=== PATIENT | female | born 1985 | race Caucasian/White ===

== ENCOUNTER 2016-11-22 04:35 | Observation (INO) | payer OTHER ==
--- NOTE | 2016-11-22 05:53 | OBPROG ---
Labor Progress Note Assessment/Plan: Assessment:cat fhr denies painful contractions irregular contractions 4-8 minutes apart exam 4-80/-1 cephalic Plan:ambulate for several hours and reevaluate for labor. Discussed IOL at this time patient desires to wait to see if labor begins after stripping the membranes 11/22/16 05:51 Subjective/Intrapartum Course: 11/22/16 05:50 Doing well. Nervous worried about baby felt decreased movement. Bby now moving cat1 fhr on monitor - SVE Dilation (cm): 4 Effacement (%): 75 Station: -1 Membranes: Intact - Physical Exam General Appearance: WD/WN, alert, no apparent distress Respiratory: chest non-tender, lungs clear, normal breath sounds Cardiac/Chest: regular rate, rhythm Abdomen: normal bowel sounds Extremities: Fransisca's sign (negative) DTR- Lower Extremities: Knee (R): 1+, Knee (L): 1+ (no clonus) Skin: normal color, warm/dry Neuro/Psych: no motor/sensory deficits, alert, normal mood/affect, oriented x 3 Oxytocin Orders Assessment - Pre-Induction/Augmentation Assessment Gestational Age: 40 week(s) and 4 day(s) ICD10 Worksheet Patient Problems: Problems Problem Status Onset Decreased movement Acute labor check Acute - ICD10 Problem Qualifiers (2) Decreased movement Qualifiers: Fetus number: single or unspecified fetus Trimester: third trimester Qualified Code(s): O36.8130 - Decreased movements, third trimester, not applicable or unspecified
--- NOTE | 2016-11-22 06:35 | GHP ---
[f rep st] HISTORY AND PHYSICAL DATE OF ADMISSION: 11/22/2016 Patient is a 31-year-old, 3, para 2, with an EDC of 11/18/2016, which gives her a gestational age of 40 and 4/7 weeks who comes in with irregular labor contractions and decreased movement on 11/22/2016. Patient has been seen at [facility] routinely since 9 weeks' gestation. MEDICAL HISTORY: Positive anemia. Patient is Rh negative. SURGICAL HISTORY: Previous concussion in high school. Stress fracture of the femur. GYNECOLOGICAL HISTORY: Previous OCP use. Previous abnormal Pap smears. Colposcopies in 2007 and 2009. Patient also had ParaGard and Mirena use. A uterine fibroid, 2 x 5 x 1 x 9 x 2 x 5. SOCIAL HISTORY: Denies tobacco use. Denies drug use. Is to [place]. PRESENT HISTORY: Abnormal 1-hour GTT with a normal 3 hour. REVIEW OF SYSTEMS: All noncontributory. FAMILY HISTORY: Noncontributory. MEDICATIONS: vitamins with DHA. ALLERGIES: NKDA. LABORATORY DATA: Patient is A positive, antibody negative. RPR is nonreactive. Rubella is nonimmune. Hepatitis is negative. HIV is negative. Three hour screen was within normal limits. GBS is negative. PHYSICAL EXAMINATION: Patient is awake, alert, oriented x3. Lungs are clear bilaterally. Bowel sounds are positive in all 4 quadrants. DTRs are 1+ bilaterally. Homans sign is negative. Patient is bibi irregularly, somewhere in between 4 and 8 minutes apart. Patient was 4-5 cm, 80% effaced, - 1 station. Cephalic presentation. Patient requested stripping of membranes. At this time, is on the fence about induction of labor due to anxiety over decreased movement. PLAN OF CARE: 1. Stripping membranes. 2. GBS negative. 3. At patient's discretion will reexamine cervix and possible induction of labor at term electively. /[id number]/MODL MTDD
--- NOTE | 2016-11-22 08:03 | OBPROG ---
Labor Progress Note Assessment/Plan: Assessment:cat fhr denies painful contractions irregular contractions 4-8 minutes apart exam 4-5/80/-1 cephalic Plan:no change to the cervix discharge to home with reassurance return for iol on sunday verbalized understanding labor precautions given 11/22/16 05:51 11/22/16 08:01 Subjective/Intrapartum Course: 11/22/16 05:50 Doing well. feeling reassured fu sunday nst reactive and reassuring 11/22/16 08:03 - SVE Dilation (cm): 4, 5 Effacement (%): 75 Station: -1 Membranes: Intact - Contraction Pattern Assessment Current Contraction Pattern: Irregular Oxytocin Orders Assessment - Pre-Induction/Augmentation Assessment Gestational Age: 40 week(s) and 4 day(s) ICD10 Worksheet Patient Problems: Problems Problem Status Onset Decreased movement Acute labor check Acute - ICD10 Problem Qualifiers (2) Decreased movement Qualifiers: Fetus number: single or unspecified fetus Trimester: third trimester Qualified Code(s): O36.8130 - Decreased movements, third trimester, not applicable or unspecified
== END 2016-11-22 08:30 | disposition home or self-care (01) ==
LOC: FLD 04:35
PROVIDERS: ADMIT Advanced Practice Midwife; ATTEND Obstetrics & Gynecology
PROC: 10D07Z8 Extraction of Products of Conception, Other, Via Natural or Artificial Opening (ICD-10-PCS; principal; 2016-11-22)
DX: O36.8130 Decreased fetal movements, third trimester, not applicable or unspecified (principal); Z3A.40 40 weeks gestation of pregnancy; O48.0 Post-term pregnancy
CPT/HCPCS: 59025; G0378

== ENCOUNTER 2016-11-23 09:00 | Inpatient (IN) | payer OTHER ==
[2016-11-23] MEDS ORDERED: EPSOM SALT 454 GM TP PRN (09:53)
[2016-11-23] MEDS ORDERED: OXYTOCIN/RINGERS LACTATE 1,000 ML IV PRN (09:53)
[2016-11-23] MEDS ORDERED: LR 1,000 ML IV PRN (09:53)
[2016-11-23] MEDS ORDERED: OLIVE OIL 118 ML BTL MISC PRN (09:53)
[2016-11-23] MEDS ORDERED: TERBUTALINE SULFATE 1 MG/ML VIAL IV PRN (09:53)
[2016-11-23 11:16] LABS: % IMMATURE GRANULYOCYTES 0.5 % (0.0-1.1); ABSOLUTE IMMATURE GRANULOCYTES 0.06 10^3/uL (0.00-0.10); ADD DIFF? NO; ADD MORPH? NO; ADD SCAN? NO; ATYPICAL LYMPHOCYTE FLAG 0 (0-99); FRAGMENT RBC FLAG 10 (0-99); HEMATOCRIT 38.6 % (38.0-47.0); HEMOGLOBIN 13.2 g/dL (12.6-16.3); LEFT SHIFT FLG 0 (0-99); LIPEMIA HEMOLYSIS FLAG 90 (0-99); MEAN CELL HEMOGLOBIN 30.8 pg (27.9-34.1); MEAN CELL HEMOGLOBIN CONCENTR. 34.2 g/dL (32.4-36.7); MEAN CELL VOLUME 90.2 fL (81.5-99.8); MEAN PLATELET VOLUME 11.4 fL (8.7-11.7); PLATELET CLUMPS FLAG 10 (0-99); PLATELET COUNT 211 10^3/uL (150-400); RED BLOOD CELL COUNT 4.28 10^6/uL (4.18-5.33); RED CELL DISTRIBUTION WIDTH 12.4 % (11.5-15.2)
[2016-11-23 11:25] LABS: ALANINE AMINOTRANSFERASE 30 IU/L (9-52); ASPARTATE AMINOTRANSFERASE 20 IU/L (14-46); BILIRUBIN,TOTAL 0.5 mg/dL (0.1-1.4); BILIRUBIN-CONJUGATED 0.2 mg/dL (0.0-0.5); BILIRUBIN-UNCONJUGATED 0.3 mg/dL (0.0-1.1); CREATININE 0.6 mg/dL (0.6-1.0); GLOMERULAR FILTRATION RATE > 60; LACTATE DEHYDROGENASE 377 IU/L (313-618); URIC ACID 6.3 mg/dL (2.5-6.8)
--- NOTE | 2016-11-23 13:08 | PDGENHP ---
History and Physical - Chief Complaint Pt presents to L&D with decreased FM x 2 days - History of Present Illness This is a [id number] with IUP@ 40-5wks that presents to L&D with complaints of decreased FM x 2 days. She reports irregular contractions, denies any LOF, VB. She denies any headaches, visual changes, epigastric pain. History Information - Allergies/Home Medication List Allergies/Adverse Reactions: No Known Allergies Allergy (Verified 08/23/12 14:27) Home Medications: L.acidoph/L.rhamn/B.bif/B.long [Probiotic Acidophilus Biobeads] 3 tab PO DAILY 08/23/12 [Last Taken Unknown] Vit27&Calcium/Iron/FA [] 1 tab PO DAILY 08/23/12 [Last Taken Unknown] I have personally reviewed and updated: family history, medical history, social history, surgical history - Past Medical History no pertinent PMH - Surgical History Reports: no pertinent surgical hx - Social History Smoking Status: Never smoked Alcohol Use: None Drug Use: None Review of Systems Review of Systems: ROS: 10pt was reviewed & negative except for what was stated in HPI & below Constitutional: Reports: no symptoms EENMT: Reports: no symptoms Cardiac: Reports: no symptoms Respiratory: Reports: no symptoms Gastrointestinal: Reports: no symptoms Genitourinary: Reports: no symptoms Muscolosketal: Reports: no symptoms Skin: Reports: no symptoms Neurological: Reports: no symptoms Physical Exam Physical Exam: Constitutional: no apparent distress, appears nourished Eyes: EOMI Ears, Nose, Mouth, Throat: moist mucous membranes, hearing normal, ears appear normal Cardiovascular: regular rate and rhythym, no murmur, rub, or gallop Respiratory: no respiratory distress, no rales or rhonchi Gastrointestinal: soft, non-tender abdomen (gravid) Genitourinary: no bladder fullness Skin: warm, normal color Musculoskeletal: full muscle strength Neurologic: AAOx3 Psychiatric: interacting appropriately, anxious Lab Data & Imaging Review 11/23/16 10:45 11/23/16 10:45 WBC 11.64 10^3/uL (3.80-9.50) H 11/23/16 10:45 RBC 4.28 10^6/uL (4.18-5.33) 11/23/16 10:45 Hgb 13.2 g/dL (12.6-16.3) 11/23/16 10:45 Hct 38.6 % (38.0-47.0) 11/23/16 10:45 MCV 90.2 fL (81.5-99.8) 11/23/16 10:45 MCH 30.8 pg (27.9-34.1) 11/23/16 10:45 MCHC 34.2 g/dL (32.4-36.7) 11/23/16 10:45 RDW 12.4 % (11.5-15.2) 11/23/16 10:45 Plt Count 211 10^3/uL (150-400) 11/23/16 10:45 MPV 11.4 fL (8.7-11.7) 11/23/16 10:45 Neut % (Auto) 80.3 % (39.3-74.2) H 11/23/16 10:45 Lymph % (Auto) 13.9 % (15.0-45.0) L 11/23/16 10:45 Jenkins % (Auto) 4.4 % (4.5-13.0) L 11/23/16 10:45 Eos % (Auto) 0.6 % (0.6-7.6) 11/23/16 10:45 Baso % (Auto) 0.3 % (0.3-1.7) 11/23/16 10:45 Nucleat RBC Rel Count 0.0 % (0.0-0.2) 11/23/16 10:45 Absolute Neuts (auto) 9.34 10^3/uL (1.70-6.50) H 11/23/16 10:45 Absolute Lymphs (auto) 1.62 10^3/uL (1.00-3.00) 11/23/16 10:45 Absolute Monos (auto) 0.51 10^3/uL (0.30-0.80) 11/23/16 10:45 Absolute Eos (auto) 0.07 10^3/uL (0.03-0.40) 11/23/16 10:45 Absolute Basos (auto) 0.04 10^3/uL (0.02-0.10) 11/23/16 10:45 Absolute Nucleated RBC 0.00 10^3/uL (0-0.01) 11/23/16 10:45 Immature Gran % 0.5 % (0.0-1.1) 11/23/16 10:45 Immature Gran # 0.06 10^3/uL (0.00-0.10) 11/23/16 10:45 BUN 10 mg/dL (7-23) 11/23/16 10:45 Creatinine 0.6 mg/dL (0.6-1.0) 11/23/16 10:45 Estimated GFR > 60 11/23/16 10:45 Uric Acid 6.3 mg/dL (2.5-6.8) 11/23/16 10:45 Total Bilirubin 0.5 mg/dL (0.1-1.4) 11/23/16 10:45 Conjugated Bilirubin 0.2 mg/dL (0.0-0.5) 11/23/16 10:45 Unconjugated Bilirubin 0.3 mg/dL (0.0-1.1) 11/23/16 10:45 AST 20 IU/L (14-46) 11/23/16 10:45 ALT 30 IU/L (9-52) 11/23/16 10:45 Lactate Dehydrogenase 377 IU/L (313-618) 11/23/16 10:45 Patient ABO/Rh A POSITIVE 11/23/16 10:45 Antibody Screen NEGATIVE 11/23/16 10:45 Assessment & Plan Assessment: [id number] with IUP@ 40-5wks Decreased FM GBS Negative Cat 1 FHR tracing Plan: Admit to L&D initiate IOL- AROM, will use pitocin PRN reassess 2hr/PRN anticipate
[2016-11-23] MEDS ORDERED: LIDOCAINE 1% 300 MG/30 ML SDV ONE (13:13)
[2016-11-23] MEDS ORDERED: OLIVE OIL 118 ML BTL ONE (13:14)
[2016-11-23] MEDS ORDERED: OXYTOCIN 10 UNIT/ML VIAL ONE (13:14)
[2016-11-23] MEDS ORDERED: AMMONIA AROMATIC 1 EACH AMP IH ONE (13:14)
[2016-11-23] MEDS ORDERED: TERBUTALINE SULFATE 1 MG/ML VIAL ONE (13:14)
[2016-11-23] MEDS ORDERED: MISOPROSTOL 200 MCG TAB ONE (13:15)
--- NOTE | 2016-11-23 13:21 | OBPROG ---
Labor Progress Note Assessment/Plan: Assessment: [id number] with IUP@ 40-5wks GBS Negative cat 1 FHR Tracing AROM- clear Plan: reassess 2hr/ PRN ambulate/hydrotherapy anticipate 11/23/16 13:18 Objective: 11/23/16 10:45 11/23/16 10:45 Patient ABO/Rh A POSITIVE 11/23/16 10:45 Uric Acid 6.3 mg/dL (2.5-6.8) 11/23/16 10:45 Total Bilirubin 0.5 mg/dL (0.1-1.4) 11/23/16 10:45 Conjugated Bilirubin 0.2 mg/dL (0.0-0.5) 11/23/16 10:45 Unconjugated Bilirubin 0.3 mg/dL (0.0-1.1) 11/23/16 10:45 AST 20 IU/L (14-46) 11/23/16 10:45 ALT 30 IU/L (9-52) 11/23/16 10:45 Lactate Dehydrogenase 377 IU/L (313-618) 11/23/16 10:45 - SVE Dilation (cm): 4 Effacement (%): 50 Station: -2 Membranes: AROM Amniotic Fluid Color: Clear - Contraction Pattern Assessment Current Contraction Pattern: Irregular - Procedures Non-surgical Procedures: Amniotomy - AP Antepartum Course: 11/23/16 13:20 entered care @9wks routine/normal care, GBS Neg - Physical Exam General Appearance: WD/WN, alert, no apparent distress Estimated Weight: [id number] Abdomen: non-tender, soft Extremities: non-tender Skin: normal color, warm/dry Neuro/Psych: normal mood/affect, oriented x 3 Oxytocin Orders Assessment - Pre-Induction/Augmentation Assessment Gestational Age: 40 week(s) and 5 day(s) ICD10 Worksheet Patient Problems: Problems Problem Status Onset Decreased movement affecting management of mother, antepartum Acute Encounter for supervision of normal first in third trimester Acute - ICD10 Problem Qualifiers (1) Decreased movement affecting management of mother, antepartum (2) Encounter for supervision of normal first in third trimester
[2016-11-23] MEDS ORDERED: OXYTOCIN 20 UNIT in LR 1,000 ML IV SCH (14:00)
[2016-11-23] MEDS: IBUPROFEN 600 MG TAB PO PRN (16:36)
--- NOTE | 2016-11-23 17:46 | OBDEL ---
Info Type: Vaginal Presentation at Delivery: Vertex L&D Analgesia/Anesthesia Type: None GBS+: No Intrapartum Medications: Generic Name Dose Route Start Last Admin Trade Name Freq PRN Reason Stop Dose Admin Ibuprofen 600 mg 11/23/16 09:53 11/23/16 16:36 Motrin PO 05/22/17 09:52 600 mg Q6HRS PRN Administration post , inflammation - Hospital Course Intrapartum: 11/23/16 17:48 IOL 2/2 decreased FM @ 40-5wks GBS Neg , unmedicated, baby boy, 3296 grams, intact perineum Indications for Delivery: Postterm Favorable Cervix (with decreased FM ) Vaginal Delivery - Delivery Provider Delivery Physician/CNM: Milady Burdick Proctoring Provider: Malika Awan - Labor and Delivery Onset of Contractions Date: 11/23/16 Onset of Contractions Time: 12:15 Onset of Contractions Type: Induced Rupture of Membranes Date: 11/23/16 Rupture of Membranes Time: 12:13 Rupture of Membranes Type: Artificial Amniotic Fluid Color: Clear Dilation Complete Date: 11/23/16 Dilation Complete Time: 16:00 Placenta Delivery Date: 11/23/16 Placenta Delivery Time: 16:19 Total Hours of Labor: 4 Non-surgical Procedures: Amniotomy Vaginal Sponge Count Correct: Yes Vaginal Needle Count Correct: Yes Vaginal Sweep Performed: No EBL: 100 Delivery Events: None - Medications Labor Augmentation/Induction Methods Used: Other (Specify) (AROM) Labor Augmentation/Induction Indication: Post Dates, Other (Specify) (decreased FM) [place] [facility] [place] Delivery Date: 11/23/16 Delivery Time: 16:06 RADHA: 11/18/16 Gestational Age: 40 week(s) and 5 day(s) Sex of Infant: Male [place] Weight (gm): 3296 g Score (1 Min): 8 Score (5 Min): 9 ICD10 Worksheet Patient Problems: Problems Problem Status Onset Decreased movement affecting management of mother, antepartum Acute Encounter for supervision of normal first in third trimester Acute (spontaneous vaginal delivery) Acute (spontaneous vaginal delivery) Acute - ICD10 Problem Qualifiers (1) Decreased movement affecting management of mother, antepartum Qualifiers: Fetus number: single or unspecified fetus Qualified Code(s): O36.8190 - Decreased movements, unspecified trimester, not applicable or unspecified (2) Encounter for supervision of normal first in third trimester (3) (spontaneous vaginal delivery) (4) (spontaneous vaginal delivery)
[2016-11-23] MEDS ORDERED: HYDROCORTISONE 0.5% CREAM TP PRN (17:50)
[2016-11-23] MEDS ORDERED: SIMETHICONE 80 MG TAB CHEW PO PRN (17:50)
[2016-11-23] MEDS ORDERED: HYDROCODONE/APAP 5/325 TAB PO PRN (17:50)
[2016-11-24] MEDS: IBUPROFEN 600 MG TAB PO PRN ×3 (02:24→18:13)
--- NOTE | 2016-11-24 09:13 | OBPP ---
Progress Note Assessment/Plan: Assessment: s/p PPD # 1 - pt is stable Plan: Continue routine pp care Plan for d/c home in am 11/2511/24/16 09:13 Subjective/ Course: Pt seen and examined. Doing well with no complaints. Minimal cramping. Mod lochia. [place] reg diet, voiding and passing flatus. No BM. BF without difficulty. Objective: 11/23/16 10:45 11/23/16 10:45 Patient ABO/Rh A POSITIVE 11/23/16 10:45 Uric Acid 6.3 mg/dL (2.5-6.8) 11/23/16 10:45 Total Bilirubin 0.5 mg/dL (0.1-1.4) 11/23/16 10:45 Conjugated Bilirubin 0.2 mg/dL (0.0-0.5) 11/23/16 10:45 Unconjugated Bilirubin 0.3 mg/dL (0.0-1.1) 11/23/16 10:45 AST 20 IU/L (14-46) 11/23/16 10:45 ALT 30 IU/L (9-52) 11/23/16 10:45 Lactate Dehydrogenase 377 IU/L (313-618) 11/23/16 10:45 Temp Pulse Resp BP Pulse Ox 36.8 C 88 16 120/75 11/23/16 22:06 11/23/16 22:06 11/23/16 22:06 11/23/16 21:08 Uterine Position/Fundal Height: Umbilicus -2 Uterine Tone: Firm Physical Exam - Physical Exam Respiratory: lungs clear, normal breath sounds Cardiac/Chest: regular rate, rhythm Abdomen: normal bowel sounds, non-tender, soft, flatus (+) Extremities: non-tender, normal inspection Skin: normal color, warm/dry Neuro/Psych: alert, normal mood/affect, oriented x 3
[2016-11-24] MEDS: DOCUSATE SODIUM 100 MG CAP PO PRN (11:52)
[2016-11-25] MEDS: IBUPROFEN 600 MG TAB PO PRN ×2 (06:03→13:11)
[2016-11-25 09:27] VITALS: BP 118/81; PULSE 73; RESP 18; TEMP 98; O2SAT 94
[2016-11-25] MEDS: DOCUSATE SODIUM 100 MG CAP PO PRN (10:07)
--- NOTE | 2016-11-25 11:59 | OBPP ---
Progress Note Assessment/Plan: Assessment: ppd# 2 s/p breast feeding Plan: routine post and discharge instructions 11/25/16 11:56 Subjective/ Course: Pt seen and examined. Doing well with no complaints. Minimal cramping. Mod lochia. [place] reg diet, voiding and passing flatus. No BM. BF without difficulty. 11/25/16 11:58 patient. is doing well. pain is well controlled. normal lochia. denies headache and changes in vision. ready to go home. breast feeding is going well. Objective: 11/23/16 10:45 11/23/16 10:45 Patient ABO/Rh A POSITIVE 11/23/16 10:45 Uric Acid 6.3 mg/dL (2.5-6.8) 11/23/16 10:45 Total Bilirubin 0.5 mg/dL (0.1-1.4) 11/23/16 10:45 Conjugated Bilirubin 0.2 mg/dL (0.0-0.5) 11/23/16 10:45 Unconjugated Bilirubin 0.3 mg/dL (0.0-1.1) 11/23/16 10:45 AST 20 IU/L (14-46) 11/23/16 10:45 ALT 30 IU/L (9-52) 11/23/16 10:45 Lactate Dehydrogenase 377 IU/L (313-618) 11/23/16 10:45 Temp Pulse Resp BP Pulse Ox 36.6 C 73 18 118/81 H 94 11/25/16 08:00 11/25/16 08:00 11/25/16 08:00 11/25/16 08:00 11/25/16 08:00 Uterine Position/Fundal Height: Umbilicus -2 Physical Exam - Physical Exam Neck: non-tender, full range of motion, supple Respiratory: chest non-tender, lungs clear, normal breath sounds Cardiac/Chest: normal peripheral pulses, regular rate, rhythm, edema Abdomen: normal bowel sounds, non-tender Extremities: normal range of motion, non-tender, normal inspection, normal capillary refill Skin: normal color, warm/dry Neuro/Psych: no motor/sensory deficits, alert, normal mood/affect, oriented x 3
--- NOTE | 2016-11-25 12:05 | OBGCSDC ---
General Delivery Information - General Info : 3 Para: 3 Abortions: 0 Type: Vaginal L&D Analgesia/Anesthesia Type: None Admission Date: 11/23/16 Labs: Patient ABO/Rh A POSITIVE 11/23/16 10:45 Hct 38.6 % (38.0-47.0) 11/23/16 10:45 - Hospital Course Antepartum: 11/23/16 13:20 entered care @9wks routine/normal care, GBS Neg Intrapartum: 11/23/16 17:48 IOL 2/2 decreased FM @ 40-5wks GBS Neg , unmedicated, baby boy, 3296 grams, intact perineum : Pt seen and examined. Doing well with no complaints. Minimal cramping. Mod lochia. [place] reg diet, voiding and passing flatus. No BM. BF without difficulty. 11/25/16 11:58 patient. is doing well. pain is well controlled. normal lochia. denies headache and changes in vision. ready to go home. breast feeding is going well. Vaginal - Delivery Provider Delivery Physician/CNM: Milady Burdick - Diagnosis Labor: Induced Rupture of Membranes Type: Artificial Amniotic Fluid Color: Clear Delivery Events: None - Procedures Non-surgical Procedures: Amniotomy - Delivery Non-surgical Procedures: Amniotomy EBL: 100 [place] [facility] [place] Delivery Date: 11/23/16 Delivery Time: 16:06 RADHA: 11/18/16 Gestational Age: 41 week(s) and 0 day(s) Sex of : Male Weight (gm): 3296 g Score (1 Min): 8 Score (5 Min): 9 Discharge Information - Discharge Information Condition: Good Instruction/Follow Up: Four Weeks, Six Weeks
== END 2016-11-25 14:15 | disposition home or self-care (01) | DRG 775 ==
LOC: FLD 09:00 → FOB 20:09
PROVIDERS: ADMIT Obstetrics & Gynecology; ATTEND Obstetrics & Gynecology
PROC: 10907ZC Drainage of Amniotic Fluid, Therapeutic from Products of Conception, Via Natural or Artificial Opening (ICD-10-PCS; principal; 2016-11-23)
PROC: 10E0XZZ Delivery of Products of Conception, External Approach (ICD-10-PCS; principal; 2016-11-23)
DX: O36.8130 Decreased fetal movements, third trimester, not applicable or unspecified (principal); O48.0 Post-term pregnancy; Z37.0 Single live birth; Z3A.40 40 weeks gestation of pregnancy
CPT/HCPCS: J3105